=== PATIENT | male | born 1975 | race Caucasian/White ===

== ENCOUNTER 2017-03-30 22:00 | Inpatient (IN) | payer MEDICARE ==
--- NOTE | ~2017-03-30 | HP ---
Unit #: [id number] #: [id number] Patient: JAMAAL GRIJALVA [id number] [place] [address] [id number] I MR#: [id number] NAME: JAMAAL GRIJALVA ROOM: P182 Age: 41 Sex: M Admission Date: 03/30/2017 : 1975 Attending Physician: Ronny Roberts M.D. Admitting Physician: Ronny Roberts M.D. Primary Care Physician: Primary Care Physician No HISTORY AND PHYSICAL HISTORY OF PRESENT ILLNESS Jamaal is a 41 year old admitted to [facility] because of his drug use. He snorts heroin. PAST MEDICAL HISTORY 1. Long history of opioid abuse to include snorting heroin. 2. Degenerative disc disease. 3. History of renal carcinoma a. Left nephrectomy. 4. Seizure disorder. 5. Chronic pain. 6. History of pectus excavatum a. Surgical repair as a teenager. PAST SURGICAL HISTORY As above. ALLERGIES No known drug allergies. SOCIAL HISTORY Smokes one pack per day, denies alcohol. Admits to a long history of opioid abuse to include snorting heroin. FAMILY HISTORY Medically noncontributory. REVIEW OF SYSTEMS CONSTITUTIONAL: No fever or chills. HEENT: Denies any sore throat, ear pain or runny nose. CARDIOVASCULAR: Denies chest pain, irregular heart rhythm or palpitations. CHEST: Denies shortness of breath or cough. No hemoptysis. GASTROINTESTINAL: Denies nausea, vomiting, diarrhea or chronic constipation. ENDOCRINE: Denies history of increased thirst or urination. No recent significant weight loss or gain. GENITOURINARY: Denies dysuria, frequency, or hematuria. SKIN: Denies any rashes. HEMATOLOGIC: Denies history of increased bleeding or bruising. MUSCULOSKELETAL: Denies any hot, swollen joints. No generalized muscle pain. NEUROLOGIC: Denies problems with vision or speech. No frequent, severe Unit #: [id number] #: [id number] Patient: JAMAAL GRIJALVA headaches. No numbness, tingling or weakness in any extremities. Denies loss of bladder or bowel control. CURRENT MEDICATIONS 1. Revia 50 mg q day 2. Vistaril 50 mg q 6 hours p.r.n. 3. Zoloft 50 mg q a.m. 4. Nicotine patch 14 mg q day 5. Lyrica 150 mg b.i.d. 6. Wellbutrin XL 300 mg q.a.m. 7. Neurontin 600 mg t.i.d. 8. Zoloft 25 mg q day 9. Milk of Magnesia p.r.n. 10. Maalox p.r.n. 11. Tylenol p.r.n. 12. [place] 10/325 1 tab q four hours p.r.n. 13. Motrin 600 mg q 6 hours p.r.n. PHYSICAL EXAMINATION GENERAL: Alert, very thin, in no apparent distress. VITAL SIGNS: Blood pressure 100/62, heart rate 80, respirations 16, temperature 98.6. WEIGHT: 151 pounds. HEIGHT: 6'1". SKIN: Warm and dry without rash or lesion. HEENT: Normocephalic. TMs not viewed. Oral and nasal passages clear. Conjunctivae clear. Pupils equal, round and reactive to light and accommodation. Extraocular movements intact. NECK: Supple without lymphadenopathy or thyromegaly. HEART: Regular rate and rhythm without murmur. LUNGS: Clear. ABDOMEN: Soft, nontender. : Not done. EXTREMITIES: No evidence of cyanosis, clubbing or edema. Moves all extremities without focal deficit. NEUROLOGICAL: Grossly within normal limits. Cranial Nerves: II: Visual kaur are intact. III, IV AND : Extraocular movements are intact. Pupils are equal, round and reactive to light. V: Facial sensation is grossly normal. VII: Facial movements and expression are normal. VIII: Auditory acuity grossly intact. IX, X: Uvula is midline. Phonation is normal. XI: Patient shrugs shoulders and turns head normally. XII: Tongue protrudes in the midline. Sensory and Motor Function: Sensory and motor sensation is grossly normal. Motor: moves all extremities well. Coordination: Gait is normal. Deep Tendon Reflexes: Intact. IMPRESSION Psychiatric admission RECOMMENDATIONS PSYCHIATRIC: Per psychiatrist. MEDICAL: I see no contraindications to participating in facility's activities. MEDICAL PROGNOSIS Good. Unit #: [id number] #: [id number] Patient: JAMAAL GRIAJLVA MEDICAL CONDITION Stable. Dictated by... Annette J. Prabhjot, P.Gabriele Chao/lucian TD: 03/31/2017 21:47 JOB #: [id number] HISTORY AND PHYSICAL Page 1 of 1 X Annette Rick HISTORY AND PHYSICAL
--- NOTE | ~2017-03-30 | PN ---
Unit #: [id number] #: [id number] Patient: JAMAAL GRIJALVA [id number] [place] [address] [id number] I MR#: [id number] NAME: JAMAAL GRIJALVA ROOM: P182 Age: 41 Sex: M Admission Date: 03/30/2017 : 1975 Attending Physician: Ronny Roberts M.D. Admitting Physician: Ronny Roberts M.D. Primary Care Physician: Primary Care Physician Sonia DURBIN PROGRESS NOTES DATE OF SERVICE: 04/01/2017 LOCATION [facility], room #182, bed #1. SUBJECTIVE This is a 41-year-old white male who is here with ongoing issues of significant depression, suicidal ideation, polysubstance dependency. The patient reports mood is somewhat better today, still depressed with hopelessness and vague SI, but no plan. He seemed calmer today compared to yesterday. He did complain that the naltrexone seems to be affecting his p.r.n. pain medications more than he thought it would and asked that it be discontinued. The patient was notably diaphoretic with mild tremor. The staff reports the patient has been interacting well in the unit with staff and peers. He has been going to activities as directed. MENTAL STATUS EXAM General appearance; this is a limitedly groomed white male, thin, appears older than stated. Good eye contact. Speech was clear and coherent. Mood was "somewhat better," less depressed with less agitated affect. Thought process and content were grossly organized and linear. No overt evidence of psychosis. SI present, but improving, no plan. The patient's HI, no HI today and no psychosis. The patient's memory was grossly intact. Associations were normal. Cognitive function was at baseline. Alert and oriented x4. Insight and judgment are improving, but limited still. RECOMMENDATIONS 1. We will continue the patient's admission for safety and stabilization of ongoing issues with depression, SI and substance abuse. The patient is following direction, doing programing, but care is ongoing. The patient is tolerating med changes well with possible increases further in the future if necessary, but for the meantime, we will discontinue the naltrexone. 2. Disposition planning is still ongoing for possible residential treatment for the patient's underlying chemical dependency issues. Dictated by... Ronny Roberts M.D. /modl Unit #: [id number] #: [id number] Patient: JAMAAL GRIJALVA TD: 04/02/2017 02:25 JOB #: [id number] RAMAKRISHNA PROGRESS NOTES Page 1 of 1 X Ronny Roberts MD X PROGRESS NOTE
--- NOTE | ~2017-03-30 | DS ---
Unit #: [id number] #: [id number] Patient: JAMAAL GRIJALVA [id number] [place] [address] [id number] I MR#: [id number] NAME: JAMAAL GRIJALVA ROOM: 82 Age: 41 Sex: M Admission Date: 03/30/2017 : 1975 Discharge Date: 04/03/2017 Attending Physician: Ronny Roberts M.D. Primary Care Physician: Primary Care Physician No DISCHARGE SUMMARY REASON FOR ADMISSION Severe depression and comorbid substance abuse with opiates and stimulants. DIAGNOSTIC STUDIES PERTINENT LABORATORY DATA: The patient had routine blood work done here which included a CMP that was within normal parameters with the exception of glucose slightly elevated at 116, CO2 of 33, bilirubin total of 0.1. The other findings were normal. CBC was within acceptable parameters. Urine toxicology screen was positive for opiates. This patient was on pain medications. Urinalysis was within normal parameters with the exception of urobilinogen of 0.2. Other labs performed. HOSPITAL COURSE The patient was admitted for safety and stabilization for ongoing issues with his depression as he initially reported being severely depressed with suicidal ideation. The patient has a history of abusing heroin and amphetamines. The patient was maintained on his home medications which did include a p.r.n. pain medication as that had been confirmed. He still had some mild withdrawal symptoms, but it was fairly well contained. The patient was tried on Naltrexone, but unfortunately it interfered with his overall pain management, so it was discontinued. The patient was maintained on the previous meds of Wellbutrin and Zoloft, that he had just been discharged to [facility] on the previous day before admission with Zoloft increased to 75 mg daily to better help with his depression. The patient tolerated these changes well and showed improvement over the course of the hospitalization. He was also initially continued on trazodone to help with sleep, unfortunately it seemed ineffective and was eventually stopped and replaced with Seroquel 50 mg. The patient was also provided with Vistaril 50 mg every 6 hours as needed for breakthrough anxiety. Again, all the medication changes were tolerated well, and over the course of hospitalization, the patient showed improvement in his mood. SI had resolved. By the time of discharge, he was much more goal and future oriented with plan initially to go to a CD residential program, but due to legal issues and when he needs to be available to show for court for child custody issues, he opted to postpone that in favor of CD-IOP so he could be available for those court hearings. Overall, the patient showed good improvement. He was interactive on the unit in an appropriate manner. There was no acting out behavioral issues, and there was no acute complaints with med changes. At the time of discharge, it was felt the patient had reached maximum benefit from admission and was appropriate for stepdown to the outpatient level of care. The patient was in agreement. DISCHARGE DIAGNOSES 1. Major depressive disorder, recurrent, severe, without psychotic Unit #: [id number] #: [id number] Patient: JAMAAL GRIJALVA. 2. Opiate dependency with mild withdrawal. 3. Stimulant dependency. 4. Chronic pain. DISCHARGE INSTRUCTIONS Discharge home with followup with [facility] program (1) __ resources. DISCHARGE MEDICATIONS 1. Seroquel 50 mg at bedtime for mood and sleep. 2. Vistaril 50 mg every 6 hours as needed for breakthrough anxiety. 3. Zoloft 75 mg daily by mouth for depression. 4. Lyrica 150 mg twice a day for pain. 5. Wellbutrin XL 300 mg every morning for depression. 6. Neurontin 600 mg 3 times a day for pain. 7. [place] 10/325, 1 tablet every 4 hours as needed for breakthrough pain. CONDITION AT DISCHARGE Improved, and they are baseline. PROGNOSIS Moderate at best given the patient's history of repeat admissions. DIET Regular. ACTIVITY As tolerated with sobriety encouraged and compliance with treatment encouraged. Dictated by... Ronny Roberts M.D. CINDY/kenny TD: 04/03/2017 10:35 JOB #: [id number] DISCHARGE SUMMARY Page 1 of 1 X Ronny Roberts MD X DISCHARGE SUMMARY
--- NOTE | ~2017-03-30 | PA ---
Unit #: [id number] #: [id number] Patient: JAMAAL GRIJALVA [id number] [place] [address] [id number] I MR#: [id number] NAME: JAMAAL GRIJALVA ROOM: P182 Age: 41 Sex: M Admission Date: 03/30/2017 : 1975 Date of Assessment: Attending Physician: Ronny Roberts M.D. Admitting Physician: Ronny Roberts M.D. Primary Care Physician: Primary Care Physician No PSYCHIATRIC ASSESSMENT DATE OF SERVICE 03/31/2017. LOCATION [facility] [address], room #182, bed #1. INFORMANTS The patient and chart, questionable reliability from the patient. CHIEF COMPLAINT HISTORY OF PRESENT ILLNESS This is a 41-year-old white male, admitted to the evaluation from the emergency services here for issues with suicidal ideation, depression, and ongoing substance abuse. The patient apparently was just discharged from [facility] yesterday and was reportedly by him sent here for admission. The patient seems very gamy on the situation and with a high manipulative quality to his presentation. Overall, the patient continues to report feeling depressed, overwhelmed by his drug use, citing issues with separation from his , homelessness, and limited support in this area as he only moved here from [place] last year. Overall, the patient continues to report feeling depressed. He is noted to be psychomotor, agitated and anxious on presentation. He reports compliance with medications that have been started recently, but has seen no profound benefit, but also has been using drugs illicitly, so he has not had adequate chance to actually response to them. PAST PSYCHIATRIC HISTORY As noted above. Other admissions in [place] before coming here. No history of actual suicide attempts, but does report history of SI with depression. No issues with psychosis. FAMILY HISTORY Noncontributory. SOCIAL HISTORY , homeless, unemployed, limited support locally. MEDICAL HISTORY Significant for chronic pain and fibromyalgia. MEDICATION HISTORY Unit #: [id number] #: [id number] Patient: JAMAAL GRIJALVA Significant for Lyrica 150 mg b.i.d., Wellbutrin XL 300 mg in the morning, Neurontin 600 mg t.i.d., Zoloft 25 mg daily, [place] 10/325 one tablet every 4 hours as needed for breakthrough pain. ALLERGIES No known drug allergies. SUBSTANCE ABUSE HISTORY As noted above. Heroin and stimulant dependence and amphetamines as drugs of choice. No IV use. No issues with seizures or other withdrawal problems. No issues with medical complications per the patient, treatment programs [id number]. MENTAL STATUS EXAMINATION General appearance; he is a limitedly groomed white male, appears much older than stated age, thin, cachectic, and somewhat psychomotor agitated in note. Speech was clear, but somewhat pressured at times. Mood was "depressed" with an anxious affect. Thought process and content were grossly organized and linear with positive SI overdosing. No HI. The patient's memory was grossly intact. Associations were normal. Cognitive function was at baseline. Alert and oriented x4. Insight and judgment were poor. ASSETS AND LIABILITIES Assets include insight about wanting to be there for his family. Liabilities include homelessness, continued drug use. ADMITTING DIAGNOSES 1. Major depressive disorder, recurrent, severe, without psychotic features. 2. Opioid dependency. 3. Stimulant dependency. PSYCHIATRIC PLAN To continue the patient's admission for safety and stabilization for ongoing issues with depression, suicidal ideation, and comorbid substance abuse. We will continue the patient on current medications, but increase the Zoloft to 75 mg daily and add naltrexone 50 mg daily to help with depression and substance abuse multiple labs pending at this time. Treatment goal will be resolution of symptoms in a safe controlled environment with discharge planning most likely requiring homeless intermediate and/or community resources for additional aftercare. ESTIMATED LENGTH OF STAY Approximately 4 to 5 days. Dictated by... Gabriele An/cindy TD: 04/01/2017 05:31 JOB #: [id number] Unit #: [id number] #: [id number] Patient: JAMAAL GRIJALVA PSYCHIATRIC ASSESSMENT Page 1 of 1 X Ronny Roberts MD PSYCHIATRIC ASSESSMENT
--- NOTE | ~2017-03-30 | PN ---
Unit #: [id number] #: [id number] Patient: JAMAAL GRIJALVA [id number] [facility] [address] [place] [address] [id number] I MR#: [id number] NAME: JAMAAL GRIJALVA ROOM: 82 Age: 41 Sex: M Admission Date: 03/30/2017 : 1975 Attending Physician: Ronny Roberts M.D. Admitting Physician: Ronny Roberts M.D. Primary Care Physician: Primary Care Physician Sonia DURBIN PROGRESS NOTES DATE 04/02/2017 SUBJECTIVE UPDATE This is a 41-year-old white male who is here with ongoing issues with significant depression, suicidal ideation and substance abuse. Patient overall continues to report some improvement today compared to yesterday. He is much less tremulous, diaphoretic. Vital signs are improving. He is still having issues with sleep disturbance and anxiety and depression but suicidal ideation is improving. He denied, it now seems more of an intermittent issue than a constant one and no clear plan today. Patient is still notably having trouble with anxiety that seems to be related to his depression, especially when it comes to issues with his family. Overall, he has been compliant with care and direction by staff. MENTAL STATUS EXAMINATION General appearance is a limitedly groomed white male appears older than stated age, thin and gaunt looking. Speech is clear and coherent. Mood is anxious, depressed with a constricted affect. Thought process and content are grossly organized and linear. No overt evidence of psychosis. Positive for vague SI but improving. No plan. No HI. Patient's memory is grossly intact. Associations are normal. Cognitive functioning is at baseline. Alert and oriented times four. Insight and judgement is improving. RECOMMENDATIONS Will continue patient's admission for safety and stabilization for ongoing issues with depression and anxiety and detox issues. Detox care is progressing well as is his mood and SI issues. Will add Seroquel at bedtime to help with sleep issues as well as residual mood needs. Patient educated about this and is in agreement. Dictated by... Ronny Roberts M.D. CINDY/leeanne TD: 04/02/2017 22:18 JOB #: [id number] Unit #: [id number] #: [id number] Patient: RUDIJAMAAL PROGRESS NOTES Page 1 of 1 X Ronny Roberts MD PROGRESS NOTE
[2017-03-31 12:33] LABS: BASOPHIL% 0.5 % (0-2.5); EOSINOPHIL# 0.3 X10e3 (0-0.7); EOSINOPHIL% 4.1 % (0.0-7.0); HEMATOCRIT 42.5 % (38.0-50.0); HEMOGLOBIN 13.8 gm/dL (13.0-16.0); LYMPHOCYTE# 3.4 X10e3 (1.0-3.5); MEAN CELL VOLUME 92.7 FL (83-96); MEAN CORPUSCULAR HEMOGLOBIN 30.1 PG (28-34); MEAN CORPUSCULAR HGB CONC 32.4 g/dL (30-36); MEAN PLATELET VOLUME 7.7 FL (6.5-11.5); MONOCYTE# 0.9 X10e3 (0-1.0); MONOCYTE% 11.6 % (3.0-12.0); NEUTROPHIL% 38.8 % (40-75); PLATELET COUNT 249 X10e3 (140-420); RED BLOOD COUNT 4.58 X10e (3.90-5.60); RED CELL DISTRIBUTION WIDTH 13.1 % (11.0-15.5); WHITE BLOOD COUNT 7.6 X10e3 (4.0-10.5)
[2017-03-31 12:37] LABS: DIFF IND NO
[2017-03-31 12:51] LABS: ALBUMIN SERUM 4.2 g/dL (3.5-5.0); BILIRUBIN,TOTAL 0.1 mg/dL (0.2-2.0); BUN/CREATININE RATIO 14.44; CALCIUM SERUM 9.5 mg/dL (8.4-10.2); CREATININE SERUM 0.9 mg/dL (0.6-1.4); GLOM FILT RATE Estimated 104.2 mL/min (>60); POTASSIUM 4.6 mmol/L (3.5-5.1); PROTEIN TOTAL SERUM 7.2 g/dL (6.0-8.3)
[2017-04-01 12:37] LABS: URINE APPEARANCE CLEAR; URINE BILIRUBIN NEG (NEG); URINE BLOOD NEG (NEG); URINE COLOR YELLOW; URINE GLUCOSE NEG (NEG); URINE KETONE NEG (NEG); URINE LEUKOCYTE ESTERASE NEG (NEG); URINE NITRATE NEG (NEG); URINE PROTEIN NEG (NEG); URINE SPECIFIC GRAVITY 1.015 (1.003-1.035); URINE UROBILINOGEN 0.2 MG/DL (NEG)
[2017-04-01 13:09] LABS: AMPHETAMINE NEG (NEG); BARBITURATES NEG (NEG); BENZODIAZEPINES NEG (NEG); COCAINE NEG (NEG); MARIJUANA NEG (NEG); OPIATES POS (NEG); TRICYCLIC ANTIDEPRESSANTS NEG (NEG); U METHADONE NEG (NEG)
== END 2017-04-03 11:15 | DRG 885 ==
LOC: P1E 22:31
PROVIDERS: Psychiatry & Neurology Psychiatry
DX: F33.2 Major depressive disorder, recurrent severe without psychotic features (principal); R45.851 Suicidal ideations; F15.20 Other stimulant dependence, uncomplicated; F11.23 Opioid dependence with withdrawal; G89.29 Other chronic pain; M79.7 Fibromyalgia; G40.909 Epilepsy, unspecified, not intractable, without status epilepticus; F17.210 Nicotine dependence, cigarettes, uncomplicated
CPT/HCPCS: 80053; 80307; 81003; 85025

== ENCOUNTER 2017-05-05 | Inpatient (IN) | payer MEDICARE ==
[~2017-05-05] VITALS: Ht 185.4 cm; Wt 69.9 kg
--- NOTE | ~2017-05-05 | PN ---
Unit #: [id number] #: [id number] Patient: JAMAAL GRIJALVA [id number] [facility] [address] [place] [address] [id number] I MR#: [id number] NAME: JAMAAL GRIJALVA ROOM: [facility] Age: 41 Sex: M Admission Date: 05/05/2017 : 1975 Attending Physician: Kiko Jones M.D. Admitting Physician: Kiko Jones M.D. Primary Care Physician: Primary Care Physician Sonia DURBIN PROGRESS NOTES DATE 05/06/2017 DISCUSSION The patient is abed today. He requesting reinitiation of Percocet and Neurontin but admits to abuse of cocaine and heroin prior to coming to the hospital. I explained to the patient that we will look to discontinue both of these medications as both are scheduled and have abuse potential. The patient exhibits no signs or symptoms of withdrawal otherwise but does appear to be in some significant physical discomfort related to opioid withdrawal. Dictated by... Kiko Jones M.D. CB/lucian TD: 05/06/2017 22:07 JOB #: [id number] RAMAKRISHNA PROGRESS NOTES Page 1 of 1 X Kiko Jones MD PROGRESS NOTE
--- NOTE | ~2017-05-05 | PN ---
Unit #: [id number] #: [id number] Patient: JAMAAL GRIJALVA [id number] [facility] [address] [place] [address] [id number] I MR#: [id number] NAME: JAMAAL GRIJALVA ROOM: [facility] Age: 41 Sex: M Admission Date: 05/05/2017 : 1975 Attending Physician: Kiko Jones M.D. Admitting Physician: Kiko Jones M.D. Primary Care Physician: Primary Care Physician Sonia DURBIN PROGRESS NOTES DATE 05/10/2017 DISCUSSION The patient is resting comfortably today and offers no new complaints. He is scheduled for his interview with "[facility]" tomorrow. Dictated by... Kiko Jones M.D. CB/lucian TD: 05/10/2017 23:51 JOB #: [id number] RAMAKRISHNA POSADAS NOTES Page 1 of 1 X Kiko Jones MD X PROGRESS NOTE
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
--- NOTE | ~2017-05-05 | PA ---
Unit #: [id number] #: [id number] Patient: JAMAAL GRIJALVA [id number] [facility] [address] [place] [address] [id number] I MR#: [id number] NAME: JAMAAL GRIJALVA ROOM: P184 Age: 41 Sex: M Admission Date: 05/05/2017 : 1975 Date of Assessment: 05/05/2017 Attending Physician: Kiko Jones M.D. Admitting Physician: Kiko Jones M.D. Primary Care Physician: Primary Care Physician No PSYCHIATRIC ASSESSMENT IDENTIFYING INFORMATION The patient is a 41-year-old white male admitted to the [facility] unit reporting positive suicidal ideation. CHIEF COMPLAINT None given. INFORMANT Chart, patient could not be aroused for interview. HISTORY OF PRESENT ILLNESS The patient is a 41-year-old white male last admitted to this facility in March of this year. He is readmitted reporting positive suicidal ideation and abuse of psychoactive substances including alcohol, cocaine and heroin. The patient reports that he is currently homeless. He had recently been hospitalized at [facility] following a suicide attempt. For a more complete history of present illness please refer to previous dictated notes. PAST PSYCHIATRIC HISTORY Reviewed, no changes. PAST MEDICAL HISTORY Reviewed, no changes. MEDICATIONS 1. Seroquel 2. Vistaril 3. Zoloft 4. Lyrica 5. Wellbutrin 6. Neurontin 7. [place] ALLERGIES None. FAMILY HISTORY Reviewed, no changes. SOCIAL HISTORY Reviewed, no changes. MENTAL STATUS EXAMINATION Unit #: [id number] #: [id number] Patient: JAMAAL GRIJALVA At this time reveals the patient to be a disheveled soundly sleeping white male. Attempts to arouse the patient are unsuccessful. ASSETS AND LIABILITIES ASSETS: To be assessed. LIABILITIES: Lack of resources. ADMITTING DIAGNOSES 1. Major depressive disorder severe without psychotic features. 2. Opioid use disorder. 3. Psychostimulants use disorder. TREATMENT PLAN The patient remains hospitalized for safety and stabilization. We will restart previously prescribed Seroquel, vistaril, Zoloft and Wellbutrin but we will discontinue [place], Lyrica and Neurontin secondary to these medications abuse potential. The patient will participate in appropriate cortez and milieu activities and suicidal precautions remain in place. ESTIMATED LENGTH OF STAY Five days. Dictated by... Gabriele Thomas TD: 05/06/2017 04:03 JOB #: [id number] PSYCHIATRIC ASSESSMENT Page 1 of 1 X Kiko Jones MD X PSYCHIATRIC ASSESSMENT
--- NOTE | ~2017-05-05 | HP ---
Unit #: [id number] #: [id number] Patient: JAMAAL GRIJALVA [id number] [place] [address] [id number] I MR#: [id number] NAME: JAMAAL GRIJALVA ROOM: P184 Age: 41 Sex: M Admission Date: 05/05/2017 : 1975 Attending Physician: Kiko Jones M.D. Admitting Physician: Kiko Jones M.D. Primary Care Physician: Primary Care Physician No HISTORY AND PHYSICAL HISTORY OF PRESENT ILLNESS Jamaal is a 41 year old, admitted to [facility], because of his continued drug use. He snorts heroin. PAST MEDICAL HISTORY 1. Long history of opioid abuse to include snorting heroin. 2. Degenerative disc disease. 3. History of renal carcinoma. a. Left nephrectomy. 4. Seizure disorder. 5. Chronic pain. 6. History of pectus excavatum. a. Surgical repair as a teenager. PAST SURGICAL HISTORY As above. ALLERGIES No known drug allergies. SOCIAL HISTORY He smokes one pack per day, denies alcohol, admits to long history of opioid abuse to include snorting heroin. FAMILY HISTORY Medically noncontributory. REVIEW OF SYSTEMS CONSTITUTIONAL: No fever or chills. HEENT: Denies any sore throat, ear pain or runny nose. CARDIOVASCULAR: Denies chest pain, irregular heart rhythm or palpitations. CHEST: Denies shortness of breath or cough. No hemoptysis. GASTROINTESTINAL: Denies nausea, vomiting, diarrhea or chronic constipation. ENDOCRINE: Denies history of increased thirst or urination. No recent significant weight loss or gain. GENITOURINARY: Denies dysuria, frequency, or hematuria. SKIN: Denies any rashes. HEMATOLOGIC: Denies history of increased bleeding or bruising. MUSCULOSKELETAL: Denies any hot, swollen joints. No generalized muscle pain. NEUROLOGIC: Denies problems with vision or speech. No frequent, severe headaches. No numbness, tingling or weakness in any extremities. Denies Unit #: [id number] #: [id number] Patient: JAMAAL GRIJALVA loss of bladder or bowel control. CURRENT MEDICATIONS 1. Detox protocol 2. Wellbutrin XL 300 mg q.a.m. 3. Zoloft 75 mg daily 4. Seroquel 50 mg q.h.s. 5. Vistaril 50 mg q.6h p.r.n. 6. Santyl ointment topically daily PHYSICAL EXAMINATION GENERAL: Alert, well-nourished, no apparent distress. VITAL SIGNS: Blood pressure 118/76, heart 76, respirations 16, and temperature 98.6. WEIGHT: 154 pounds. HEIGHT: 5 feet 1 inch. SKIN: Warm and dry without rash. He has a significant abrasion/burn along the right posterior forearm and a much smaller area, approximately quarter-sized along the right upper thigh. There was no increased redness, swelling, heat, or pus noted. HEENT: Normocephalic. TMs not viewed. Oral and nasal passages clear. Conjunctivae clear. PERRLA. EOMs intact. NECK: Supple without lymphadenopathy or thyromegaly. HEART: Regular rate and rhythm without murmur. LUNGS: Clear. ABDOMEN: Soft, nontender. : Not done. EXTREMITIES: No evidence of cyanosis, clubbing or edema. Moves all without focal deficit. NEUROLOGICAL: Grossly within normal limits. Cranial Nerves: II: Visual kaur are intact. III, IV AND : Extraocular movements are intact. Pupils are equal, round and reactive to light. V: Facial sensation is grossly normal. VII: Facial movements and expression are normal. VIII: Auditory acuity grossly intact. IX, X: Uvula is midline. Phonation is normal. XI: Patient shrugs shoulders and turns head normally. XII: Tongue protrudes in the midline. Sensory and Motor Function: Sensory and motor sensation is grossly normal. Motor: moves all extremities well. Coordination: Gait is normal. Deep Tendon Reflexes: Intact. IMPRESSION 1. Psychiatric admission. 2. Abrasion/burn to his right arm sustained prior to admission. RECOMMENDATIONS Psychiatric, per psychiatrist. MEDICAL 1. I see no contraindications to participating in facility's activities. 2. Keep the area clean with soap and water, apply Santyl ointment and cover with gauze, secured with paper tape daily. MEDICAL PROGNOSIS Good. MEDICAL CONDITION Stable. Unit #: [id number] #: [id number] Patient: GRIJALVAJAMAAL Dictated by... Annette Rick P.A.-C. for Gabriele Gaines/gelacio TD: 05/06/2017 04:59 JOB #: [id number] HISTORY AND PHYSICAL Page 1 of 1 X Annette Rick X HISTORY AND PHYSICAL
--- NOTE | ~2017-05-05 | DS ---
Unit #: [id number] #: [id number] Patient: JAMAAL GRIJALVA [id number] [place] [address] [id number] I MR#: [id number] NAME: JAMAAL GRIJALVA ROOM: P184 Age: 41 Sex: M Admission Date: 05/05/2017 : 1975 Discharge Date: 05/12/2017 Attending Physician: Kiko Jones M.D. Primary Care Physician: Primary Care Physician No DISCHARGE SUMMARY REASON FOR ADMISSION The patient is a 41-year-old white male, admitted to the [facility] unit with a history of methamphetamine and heroin use. HOSPITAL COURSE The patient was admitted to the [facility] unit and placed on routine detoxification protocol for opioids. His stay in the hospital was characterized by increasing participation as his detox symptoms resolved. He was continued on previously prescribed Zoloft, Wellbutrin, and Vistaril and Seroquel during his stay in the hospital. By 05/12/2017, arrangements were made for the patient to go for residential chemical dependency treatment and dual diagnosis treatment. Discharge was ordered. FINAL DIAGNOSES Dysthymic disorder; methamphetamine use disorder; opioid use disorder. DISPOSITION ON DISCHARGE The patient is discharged on the following medications: Seroquel 50 mg at bedtime for mood stabilization, Vistaril 50 mg q.6 hours p.r.n. anxiety, Zoloft 75 mg daily for depression, and Wellbutrin XL 300 mg daily for depression. DISCHARGE INSTRUCTIONS No dietary or physical restrictions were placed upon the patient at the time of discharge. FOLLOWUP Followup will take place through the auspices of a residential chemical dependency dual diagnosis treatment program. PROGNOSIS The patient's prognosis is considered fair. Dictated by... Kiko Jones M.D. ELEAZAR/cindy TD: 05/12/2017 22:08 JOB #: [id number] Unit #: [id number] #: [id number] Patient: JAMAAL GRIJALVA DISCHARGE SUMMARY Page 1 of 1 X Kiko Jones MD X DISCHARGE SUMMARY
--- NOTE | ~2017-05-05 | PN ---
Unit #: [id number] #: [id number] Patient: JAMAAL GRIJALVA [id number] [facility] [address] [place] [address] [id number] I MR#: [id number] NAME: JAMAAL GRIJALVA ROOM: 84 Age: 41 Sex: M Admission Date: 05/05/2017 : 1975 Attending Physician: Kiko Jones M.D. Admitting Physician: Kiko Jones M.D. Primary Care Physician: Primary Care Physician Sonia POSADAS NOTES DATE 05/09/2017 DISCUSSION The patient appears to be in less physical discomfort from opioid withdrawal. He continues to express interest in residential chemical dependence treatment and is scheduled for a phone interview on Thursday. Dictated by... Kiko Jones M.D. CB/kenny TD: 05/09/2017 14:58 JOB #: [id number] RAMAKRISHNA POSADAS NOTES Page 1 of 1 X Kkio Jones MD PROGRESS NOTE
--- NOTE | ~2017-05-05 | PN ---
Unit #: [id number] #: [id number] Patient: JAMAAL GRIJALVA [id number] [facility] [address] [place] [address] [id number] I MR#: [id number] NAME: JAMAAL GRIJALVA ROOM: 84 Age: 41 Sex: M Admission Date: 05/05/2017 : 1975 Attending Physician: Kiko Jones M.D. Admitting Physician: Kiko Jones M.D. Primary Care Physician: Primary Care Physician Sonia DURBIN PROGRESS NOTES DATE 05/08/2017 DISCUSSION The patient is more seclusive today and is complaining of feeling "hot and sick." We continue current treatment, and we continue to consider residential chemical dependence treatment options for the patient. Dictated by... Kiko Jones M.D. CB/bzdonna TD: 05/08/2017 15:50 JOB #: [id number] RAMAKRISHNA PROGRESS NOTES Page 1 of 1 X Kiko Jones MD PROGRESS NOTE
--- NOTE | ~2017-05-05 | PN ---
Unit #: [id number] #: [id number] Patient: JAMAAL GRIJALVA [id number] [facility] [address] [place] [address] [id number] I MR#: [id number] NAME: JAMAAL GRIJALVA ROOM: 84 Age: 41 Sex: M Admission Date: 05/05/2017 : 1975 Attending Physician: Kiko Jones M.D. Admitting Physician: Kiko Jones M.D. Primary Care Physician: Primary Care Physician Sonia DURBIN PROGRESS NOTES DATE 05/07/2017 DISCUSSION The patient is more active within the therapeutic milieu and is reporting reduction in symptoms of withdrawal. He is interested in residential treatment referral and such referrals are being made to various facilities at this time. Dictated by... Kiko Jones M.D. CB/leeanne TD: 05/07/2017 16:02 JOB #: [id number] RAMAKRISHNA POSADAS NOTES Page 1 of 1 X Kiko Jones MD PROGRESS NOTE
--- NOTE | ~2017-05-05 | PN ---
Unit #: [id number] #: [id number] Patient: JAMAAL GRIJALVA [id number] [facility] [address] [place] [address] [id number] I MR#: [id number] NAME: JAMAAL GRIJALVA ROOM: 84 Age: 41 Sex: M Admission Date: 05/05/2017 : 1975 Attending Physician: Kiko Jones M.D. Admitting Physician: Kiko Jones M.D. Primary Care Physician: Primary Care Physician Sonia DURBIN PROGRESS NOTES DATE 05/11/2017 DISCUSSION The patient is more active within the therapeutic milieu. He completed his interview with [facility]" earlier today and it is our hope that transfer to that facility will be able to take place in the next couple of days. Another possibility is a facility in [facility]. Dictated by... Kiko Jones M.D. CB/lucian TD: 05/11/2017 23:27 JOB #: [id number] RAMAKRISHNA PROGRESS NOTES Page 1 of 1 X Kiko Jones MD PROGRESS NOTE
== END 2017-05-12 14:37 | disposition home or self-care (01) | DRG 885 ==
LOC: P1E 02:45
PROC: HZ2ZZZZ Detoxification Services for Substance Abuse Treatment (ICD-10-PCS; principal; 2017-05-05)
DX: F33.2 Major depressive disorder, recurrent severe without psychotic features (principal); R45.851 Suicidal ideations; F11.23 Opioid dependence with withdrawal; F15.10 Other stimulant abuse, uncomplicated; G89.29 Other chronic pain; F17.210 Nicotine dependence, cigarettes, uncomplicated